=== PATIENT | male | born 1990 | race Caucasian/White ===

== ENCOUNTER 2017-01-21 09:19 | Emergency (ER) | payer OTHER ==
[2017-01-21 09:19] VITALS: BMI 21.1
[2017-01-21 09:23] VITALS: BP 123/80; TEMP 99
--- NOTE | 2017-01-21 09:59 | DI ---
EXAM: RIGHT WRIST THREE VIEWS HISTORY: Wrist pain FINDINGS: Bone and joint structures appear normal. No joint dislocation, displaced fracture or b one density abnormality. Soft tissues are within normal limits. No arthritic change. IMPRESSION: Within normal limits.
--- NOTE | 2017-01-21 10:00 | DI ---
EXAM: RIGHT HAND, 3 VIEWS HISTORY: Hand pain FINDINGS: Bone and joint structures appear normal. There is no fracture, joint dislocation, bone density abnormality or soft tissue finding. IMPRESSION: Unremarkable study.
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
== END 2017-01-21 10:12 | disposition home or self-care (01) ==
LOC: ED 09:19
DX: M79.641 Pain in right hand (principal); W19.XXXA Unspecified fall, initial encounter; F17.210 Nicotine dependence, cigarettes, uncomplicated
CPT/HCPCS: 99283

== ENCOUNTER 2017-08-15 11:58 | Emergency (ER) ==
[2017-08-15 12:04] VITALS: BP 156/95; TEMP 97.3; BMI 24.3
--- NOTE | 2017-08-15 12:43 | DI ---
Exam: Three x-rays of the left hand. Comparison: None available. Reason for exam: Pain. FINDINGS: There is a displaced fracture of the left fifth metacarpal and a healed fracture of the le ft fourth metacarpal. No other fracture or malalignment is seen. There is a moderate amount of soft tissue swelling seen adjacent to the fracture. Impression: Displaced left fifth metacarpal fracture. Report faxed at [phone] hours on 08/15/2017.
--- NOTE | 2017-08-15 12:45 | DI ---
EXAM: Left wrist three-view HISTORY: Pain COMPARISON: None FINDINGS: There is a displaced fracture of the mid diaphysis fifth metacarpal. There is a old heale d fracture fourth metacarpal. No fracture or dislocation of the bones of the wrist. No focal soft tis rio abnormality. IMPERSSION: 1. Fracture of the fifth metacarpal. 2. No fracture of the bones of the wrist.
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
== END 2017-08-15 13:36 | disposition home or self-care (01) ==
LOC: ED 11:58
DX: S62.307A Unspecified fracture of fifth metacarpal bone, left hand, initial encounter for closed fracture (principal); V86.95XA Unspecified occupant of 3- or 4- wheeled all-terrain vehicle (ATV) injured in nontraffic accident, initial encounter; F17.210 Nicotine dependence, cigarettes, uncomplicated
CPT/HCPCS: 99283

== ENCOUNTER 2018-01-21 12:17 | Emergency (ER) ==
[2018-01-21 12:24] VITALS: TEMP 98.6
[2018-01-21] MEDS ORDERED: HALDOL IM STA (13:02)
[2018-01-21] MEDS ORDERED: ATIVAN IM STA (13:03)
[2018-01-21] MEDS ORDERED: HALDOL ONE (13:16)
[2018-01-21 13:40] VITALS: BMI 24.6
[2018-01-21 16:35] VITALS: BP 112/65
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
--- NOTE | 2018-01-21 18:04 | CT ---
EXAM: CT of the head without contrast History: Altered mental status and confusion. Comparison: Head CT 07/29/2014 Technique: Multiplanar CT images through the head were obtained without the administration of IV con trast Findings: Mild mucosal thickening of the left maxillary sinus. Mastoid air cells are clear in gener al. No acute calvarial abnormalities. Intracranially there is stable mild frontal atrophy. No dominant mass or midline shift. No hydrocep halous. No acute intracranial hemorrhage or abnormal extraaxial fluid collections. Impression: 1. No acute intracranial process. 2. Stable mild frontal atrophy. 3. Mild mucosal thickening of the left maxillary sinus.
== END 2018-01-21 19:20 | disposition home or self-care (01) ==
LOC: ED 12:17
DX: F23 Brief psychotic disorder (principal); F17.210 Nicotine dependence, cigarettes, uncomplicated
CPT/HCPCS: 36415; 80053; 80306; 80307; 81001; 85025; 96372; 99285